=== PATIENT | male | born 1980 | race Caucasian/White ===

== ENCOUNTER 2020-07-22 03:33 | Outpatient (CLI) | payer MEDICAID, SELFPAY ==
--- NOTE | 2020-07-22 08:15 | RT.EKG_ITS ---
APPROVED REPORT Exam: Resting ECG Reason for Exam: High Risk Medications Patient Location: O HR:65 bpm ECG Measurements Heart Rate 65 AXIS NC 159 P 50 QRSd 84 QRS 53 QT 465 T 54 QTc 485 Conclusion Sinus rhythm...normal P axis, V-rate 60- 99
== END 2020-07-22 03:34 | disposition home or self-care (01) ==
LOC: RT 03:34
PROVIDERS: Visit Provider Family Medicine
DX: Z79.899 Other long term (current) drug therapy (principal); Z13.6 Encounter for screening for cardiovascular disorders
CPT/HCPCS: 93005; 93010

== ENCOUNTER 2020-08-05 08:29 | Outpatient (CLI) | payer MEDICAID, SELFPAY ==
--- NOTE | 2020-08-05 08:30 | RT.EKG_ITS ---
APPROVED REPORT Exam: Resting ECG Reason for Exam: high risk med Patient Location: O HR:55 bpm ECG Measurements Heart Rate 55 AXIS [place] 167 P 59 QRSd 84 QRS 45 QT 500 T 53 QTc 479 Conclusion Sinus bradycardia...rate< 60
== END 2020-08-05 08:30 | disposition home or self-care (01) ==
LOC: RT 08:33
PROVIDERS: PCP Family Medicine; Visit Provider Family Medicine
DX: Z79.899 Other long term (current) drug therapy (principal)
CPT/HCPCS: 93005; 93010

== ENCOUNTER 2020-12-13 18:11 | Outpatient (REF) | payer MEDICAID, SELFPAY ==
[2020-12-12 20:47] LABS: HCT 34.9 % (40.0-50.0); HGB 10.4 g/dL (13.5-17.5); MCH 26.4 pg (27.0-33.0); MCHC 29.8 % (32.0-36.0); MCV 88.6 fL (80-95); Platelet Count 379 10^3/uL (130-400); RBC 3.94 10^6/uL (4.36-5.78); RDW 15.7 % (11.8-14.1); WBC 5.56 10^3/uL (4.4-10.8)
== END 2020-12-13 18:12 | disposition home or self-care (01) ==
LOC: NCHCN 18:11
PROVIDERS: PCP Family Medicine; Visit Provider Family Medicine
DX: D64.9 Anemia, unspecified (principal); K65.1 Peritoneal abscess; Z48.02 Encounter for removal of sutures
CPT/HCPCS: 85027

== ENCOUNTER 2022-08-11 12:09 | Emergency (ER) | payer MEDICAID, SELFPAY ==
--- NOTE | 2022-08-11 12:15 | DI.US_ITS ---
Exam(s) US UPPER EXTREMITY VENOUS RT EXAM: US UPPER EXTREMITY VENOUS RT CLINICAL HISTORY: cellulitis, eval for DVT/abscess. TECHNIQUE: Ultrasound examination of the right upper extremity venous system(s) is performed using g rayscale, color-flow, and spectral Doppler analysis. COMPARISON: No exams were available for comparison FINDINGS: The right internal jugular, axillary, subclavian and brachial veins are patent without evidence of th rombosis. The mid and distal cephalic vein is noncompressible for length of 10-12 cm. There is also partial compression of the proximal to mid basilic vein. Several ill-defined fluid collections are seen in the upper extremity. They measure less than 2 cm. There is edema seen in the right upper ex tremity. IMPRESSION: 1. Thrombus seen in the distal cephalic vein for length of 10-12 cm. 2. Nonocclusive thrombus seen in the proximal to mid basilic vein. 3. Findings were discussed with Dr. Zayas at 3:40 p.m. on 08/11/2022. DATA REPOSITORY:
[2022-08-11 12:18] VITALS: BP 118/69; PULSE 109; RESP 18; TEMP 37.4; O2SAT 97
--- NOTE | 2022-08-11 12:31 | W.ED.GENAD ---
Discharge Plan Discharge Details Chief Complaint: Cellulitis Clinical Impression: Cellulitis of arm, right Primary Care Provider: Lissy Allen ED Provider: Ryan Zayas Home Meds and New Rx's Prescriptions: No Action albuterol sulfate 90 mcg/actuation Hfa Aerosol Inhaler 2 inh INHALATION Q4H PRN PRN Medical Decision Making 35-year-old male who is right-hand dominant who is an IV drug user and injects cocaine regularly into his right arm presents today for swelling in his right arm. Patient states that he has been injecting regularly and over the last 1 to 2 days he has noticed significant swelling in the right arm in the right AC region, in the right bicep region, as well as associated pain. He denies fever or chills. He admits notable redness. Pain is made worse with movement of the arm. He did take some ibuprofen but this did not improve his symptoms at all. He denies vomiting or diarrhea. He denies any trauma. He denies any chest pain or shortness of breath. No other complaints at this time. No other modifying factors. The patient's AC region and right bicep and proximal forearm are notably swollen about double the size of his left. Notable tense skin, no fluctuance. Redness and warmth is present, multiple injection sites is present. No clear evidence of focal abscess. No significant axillary swelling. No swelling over the right shoulder. Distal forearm and hand is unremarkable with no significant swelling or edema. Normal movement and strength and capillary refill. Concern for cellulitis clearly, no evidence of necrotizing fasciitis clinically, but this is on the differential. DVT is also certainly of concern. We will get an ultrasound, treat with clindamycin, get blood cultures, monitor closely and reassess. Patient will be signed out to my colleague Dr. Godoy for follow-up on labs and imaging. HPI General Date/Time Provider Initiated Documentation: 08/11/22 12:19. HPI Narrative: 35-year-old male who is right-hand dominant who is an IV drug user and injects cocaine regularly into his right arm presents today for swelling in his right arm. Patient states that he has been injecting regularly and over the last 1 to 2 days he has noticed significant swelling in the right arm in the right AC region, in the right bicep region, as well as associated pain. He denies fever or chills. He admits notable redness. Pain is made worse with movement of the arm. He did take some ibuprofen but this did not improve his symptoms at all. He denies vomiting or diarrhea. He denies any trauma. He denies any chest pain or shortness of breath. No other complaints at this time. No other modifying factors. Related Data Home Medications Medication Instructions Recorded Confirmed albuterol sulfate 90 mcg/actuation 2 inh inhalation Q4H PRN PRN 08/11/22 08/11/22 aerosol inhaler Allergies Allergy/AdvReac Type Severity Reaction Status Date / Time Penicillins Allergy Intermediate Hives Unverified 08/11/22 12:25 General Stated Complaint: Cellulitis JEANNETTE: 3 Review of Systems All systems reviewed & are unremarkable except as noted in HPI and below PFSH All Active Problems (Updated 08/11/22 @ 15:20 by Ryan Zayas DO) Cellulitis of arm, right (Acute) Social History Smoking risk assessment performed?: No Exam Narrative Exam Narrative: 1.Const: Well-nourished, Well-developed, appearing stated age 2.Eyes: PERRL, no conjunctival injection, and symmetrical lids. 3.ENT: Atraumatic external nose and ears. Moist MM. Neck: Symmetric, trachea midline, No thyromegaly. 4.CVS: +S1/S2, No murmurs or gallops. Peripheral pulses 2+ and equal in all extremities. Brisk capillary refill in all extremities. 5.RESP: Unlabored respiratory effort. Clear to auscultation bilaterally. No wheezes rales or rhonchi 6.GI: Soft, Nontender/Nondistended, No hepatosplenomegaly. No guarding or rebound. 7.MSK: Normocephalic/Atraumatic, patient's AC region and right bicep and proximal forearm are notably swollen about double the size of his left. Notable tense skin, no fluctuance. Redness and warmth is present, multiple injection sites is present. No clear evidence of focal abscess. No significant axillary swelling. No swelling over the right shoulder. Distal forearm and hand is unremarkable with no significant swelling or edema. Normal movement and strength and capillary refill. 8.Skin: Warm, Dry. No rashes or lesions. 9.Neuro: retirement village manager II-XII grossly intact. Sensation grossly intact, no focal neurologic deficits. 10.Psych: (AAO) x3. Appropriate mood and affect Course Vital Signs Vital signs: Vital Signs Temperature 37.4 C 08/11/22 12:18 Pulse 109 H 08/11/22 12:18 Respiratory Rate 18 08/11/22 12:18 Blood Pressure 118/69 08/11/22 12:18 Pulse Oximetry 97 08/11/22 12:18 Temperature 37.4 C 08/11/22 12:18 Temperature Source Oral 08/11/22 12:18 Pulse 109 H 08/11/22 12:18 Respiratory Rate 18 08/11/22 12:18 Blood Pressure 118/69 08/11/22 12:18 Blood Pressure Position Sitting 08/11/22 12:18 Pulse Oximetry 97 08/11/22 12:18 Oxygen Delivery Method Room Air 08/11/22 12:18 Oxygen Flow Rate 0 08/11/22 12:18 Pain Level 7 08/11/22 12:18 Lab/Test Results Lab/Test Results: 08/11/22 12:27 Blood Blood Culture - Pending 08/11/22 12:27 Blood Blood Culture - Pending
[2022-08-11 12:52] LABS: Abs Immature Grans 0.05 10^3/uL (0.0-0.06); Absolute Basophil Count 0.02 10^3/uL (0.0-0.2); Absolute Eosinophil Count 0.36 10^3/uL (0.0-0.7); Absolute Lymphocyte Count 0.24 10^3/uL (1.2-3.4); Absolute Monocyte Count 0.42 10^3/uL (0.1-0.8); Basophils % 0.2; Eosinophils % 3.3; HCT 40.2 % (40.0-50.0); HGB 12.5 g/dL (13.5-17.5); Immature Grans % 0.5; Lymphocytes % 2.2; MCH 26.5 pg (27.0-33.0); MCHC 31.1 % (32.0-36.0); MCV 85 fL (80-95); MPV 9.6 fL (8.0-11.0); Monocytes % 3.9; Neutrophils % 89.9; Platelet Count 343 10^3/uL (130-400); RBC 4.71 10^6/uL (4.36-5.78); RDW 12.9 % (11.8-14.1); RDW-SD 40.8 fL; WBC 10.89 10^3/uL (4.4-10.8)
[2022-08-11] MEDS: Ketorolac 15 MG/ML VIAL IVP (12:59)
[2022-08-11] MEDS: CLINDAMYCIN 600 MG/50 ML BAG 100 MG IVPB (12:59)
[2022-08-11] MEDS: Acetaminophen 500 MG TAB 1000 MG PO (12:59)
[2022-08-11 13:00] LABS: Absolute Neutrophil Count 9.79 10^3/uL (1.2-6.7)
[2022-08-11 13:08] LABS: ALT 29 U/L (16-63); AST 18 U/L (15-37); Albumin 3.4 g/dL (3.4-5.0); Alkaline Phosphatase 98 U/L (46-116); Anion Gap 7.8 mmol/L (3-11); BUN 12 mg/dL (7-18); Bilirubin, Total 0.5 mg/dL (0.2-1.0); CO2 27.2 mmol/L (21.0-32.0); CREATININE 0.8 mg/dL (0.70-1.30); Calcium 8.6 mg/dL (8.5-10.1); Chloride 101 mmol/L (98-107); Estimated GFR 118.36 (mL/min/1.73m2); Glucose 115 mg/dL (74-106); Sodium 136 mmol/L (136-145); Total Protein 7.6 g/dL (6.4-8.2)
[2022-08-11 15:57] VITALS: PULSE 80; RESP 16; O2SAT 97
--- NOTE | 2022-08-12 21:39 | W.ED.GENAD ---
Discharge Plan Disposition Patient Disposition: Home Discharge Details Clinical Impression: Cellulitis of arm, right Primary Care Provider: Lissy Allen ED Provider: Ryan Zayas Home Meds and New Rx's Prescriptions: No Action albuterol sulfate 90 mcg/actuation Hfa Aerosol Inhaler 2 inh INHALATION Q4H PRN PRN Discharge Instructions Instructions: Apixaban (By mouth), Cellulitis (ED), Deep Vein Thrombosis (ED) Additional Instructions: At this time you have cellulitis which is an infection in the skin of your arm. There is a very beginnings of small fluid collections, but they are not large enough to drain at this time. Please take the antibiotic clindamycin as directed. It has been sent to your pharmacy on file. Please take a yogurt with live culture or a probiotic to help prevent any diarrhea while on this. Additionally you do have a small clot in your elbow area, but also what appears to be an earlier clot in the deeper vessels. There are risks and benefits to treatment. I have sent a prescription of Xarelto to your pharmacy. It would be our recommendations to take this medication to treat the blood clot. However there are certainly complications if you continue to inject while using this medication. Please follow-up closely in the next 10 days with your primary care provider for reassessment. You will likely need a repeat ultrasound in the next 2 to 3 weeks to reassess the clot. If you notice any worsening of your symptoms, or any new symptoms such as vomiting, diarrhea, fever, chills, shortness of breath, chest pain, numbness, weakness, or fainting , please return immediately to the emergency department for reevaluation. Please follow up with your primary care provider as soon as possible for reassessment and reevaluation. As always, it was a pleasure participating in your medical care today. Referrals: Lissy Allen [Primary Care Provider] - Discharge Data Discharge Date/Time-TO BE ENTERED AT DEPARTURE: 08/11/22 15:58 Medical Decision Making Patient was seen in August. Chart was signed including for HPI, physical exam, and assessment and plan. Unfortunately for some reason these allegedly did not save, and the chart was brought back to my attention as an unsigned chart today October 14, 2022. Although initial documentation was saved as required, the current documentation is now being written out of memory for the event over 2-1/2 months ago. Please see below: Patient presents with complaint of pain and swelling in his right arm. Patient injects in the area regularly, including injecting cocaine. He admits to mild redness and warmth. Mild achiness. He denies fever or chills. No other complaints at this time. He denies numbness tingling or weakness. Exam demonstrates evidence of a superficial clot, cellulitis, small abscess. Recommendations were that the patient be admitted and stay for IV antibiotics blood thinners and formal ultrasonography. Patient refused this. Patient will be started on clindamycin and a blood thinner however patient states that he will likely not be taking a blood thinner. Patient was discharged understanding the risks of his choices, including the worst case scenario which would be or lifelong disability. HPI General Date/Time Provider Initiated Documentation: 08/11/22 12:19. HPI Narrative: Patient presents with complaint of pain and swelling in his right arm. Patient injects in the area regularly, including injecting cocaine. He admits to mild redness and warmth. Mild achiness. He denies fever or chills. No other complaints at this time. He denies numbness tingling or weakness. Related Data Home Medications Medication Instructions Recorded Confirmed albuterol sulfate 90 mcg/actuation 2 inh inhalation Q4H PRN PRN 08/11/22 08/12/22 aerosol inhaler Allergies Allergy/AdvReac Type Severity Reaction Status Date / Time Penicillins Allergy Intermediate Hives Unverified 08/11/22 12:25 General Stated Complaint: Cellulitis JEANNETTE: 3 Review of Systems All systems reviewed & are unremarkable except as noted in HPI and below [facility] Social History Smoking/Tobacco Use Status: Never Smoking risk assessment performed?: Yes Alcohol Intake: never Drug use: Never Substance use type: does not use Do you feel safe at home: Yes Do you feel safe in your relationship?: Yes Exam Narrative Exam Narrative: 1.Const: Well-nourished, Well-developed, appearing stated age 2.Eyes: PERRL, no conjunctival injection, and symmetrical lids. 3.ENT: Atraumatic external nose and ears. Moist MM. Neck: Symmetric, trachea midline, No thyromegaly. 4.CVS: +S1/S2, No murmurs or gallops. Peripheral pulses 2+ and equal in all extremities. Brisk capillary refill in all extremities. 5.RESP: Unlabored respiratory effort. Clear to auscultation bilaterally. No wheezes rales or rhonchi 6.GI: Soft, Nontender/Nondistended, No hepatosplenomegaly. No guarding or rebound. 7.MSK: Right arm demonstrates swelling, evidence of cellulitis, small fluid collection subcutaneously where he has injected. No subcutaneous crepitus. Small clots noted also. No pain out of proportion. No swelling proximal to the elbow. 8.Skin: Please see musculoskeletal 9.Neuro: blow molding machine tender II-XII grossly intact. Sensation grossly intact, no focal neurologic deficits. 10.Psych: (AAO) x3. Appropriate mood and affect Course Vital Signs Vital signs: Vital Signs Temperature 37.4 C 08/11/22 12:18 Pulse 109 H 08/11/22 12:18 Respiratory Rate 18 08/11/22 12:18 Blood Pressure 118/69 08/11/22 12:18 Pulse Oximetry 97 08/11/22 12:18 Temperature 37.4 C 08/11/22 12:18 Temperature Source Oral 08/11/22 12:18 Pulse 80 08/11/22 15:57 Respiratory Rate 16 08/11/22 15:57 Respiratory Effort Normal 08/11/22 13:28 Blood Pressure 118/69 08/11/22 12:18 Blood Pressure Position Sitting 08/11/22 12:18 Pulse Oximetry 97 08/11/22 15:57 Oxygen Delivery Method Room Air 08/11/22 12:18 Oxygen Flow Rate 0 08/11/22 12:18 Pain Level 7 08/11/22 12:18 Lab/Test Results Lab/Test Results: 08/11/22 13:00 Blood Blood Culture - Preliminary NO GROWTH 24 HOURS 08/11/22 13:15 Blood Blood Culture - Preliminary NO GROWTH 24 HOURS Laboratory Tests Range/Units 08/11/22 08/11/22 12:43 12:43 WBC (4.4-10.8) 10^3/uL 10.89 H RBC (4.36-5.78) 10^6/uL 4.71 Hgb (13.5-17.5) g/dL 12.5 L Hct (40.0-50.0) % 40.2 MCV (80-95) fL 85 MCH (27.0-33.0) pg 26.5 L MCHC (32.0-36.0) % 31.1 L RDW (11.8-14.1) % 12.9 Plt Count (130-400) 10^3/uL 343 MPV (8.0-11.0) fL 9.6 Immature Gran % 0.5 Neutrophils % 89.9 Lymphocytes % 2.2 Monocytes % 3.9 Eosinophils % 3.3 Basophils % 0.2 Nucleated RBC % (0.0-0.3) % 0.0 Absolute Neutrophils (1.2-6.7) 10^3/uL 9.79 H Absolute Lymphocytes (1.2-3.4) 10^3/uL 0.24 L Absolute Monocytes (0.1-0.8) 10^3/uL 0.42 Absolute Eosinophils (0.0-0.7) 10^3/uL 0.36 Absolute Basophils (0.0-0.2) 10^3/uL 0.02 Sodium (136-145) mmol/L 136 Potassium (3.5-5.1) mmol/L 4.0 Chloride (98-107) mmol/L 101 Carbon Dioxide (21.0-32.0) mmol/L 27.2 Anion Gap (3-11) mmol/L 7.8 BUN (7-18) mg/dL 12 Creatinine (0.70-1.30) mg/dL 0.8 Est GFR (CKD-EPI 2020) (mL/min/1.73m2) 118.36 Glucose (74-106) mg/dL 115 H Calcium (8.5-10.1) mg/dL 8.6 Total Bilirubin (0.2-1.0) mg/dL 0.5 AST (15-37) U/L 18 ALT (16-63) U/L 29 Alkaline Phosphatase (46-116) U/L 98 Total Protein (6.4-8.2) g/dL 7.6 Albumin (3.4-5.0) g/dL 3.4 Sign Out Sign Out Data: Sign Out Comment: Right arm cellulitis, pending ultrasound for DVT. Recommend clindamycin for home. IV drug using. Last updated by Ryan Zayas DO at 08/11/22 15:21
== END 2022-08-11 15:58 | disposition home or self-care (01) ==
PROVIDERS: Emergency Provider Student in an Organized Health Care Education/Training Program; PCP Family Medicine
DX: L03.113 Cellulitis of right upper limb (principal); I82.611 Acute embolism and thrombosis of superficial veins of right upper extremity
CPT/HCPCS: 80053; 87040; 96365; 96375; 99284; 85025; 93971; J1885

== ENCOUNTER 2022-08-12 00:30 | Emergency (ER) | payer MEDICAID, SELFPAY ==
[2022-08-12] VITALS (42 sets, daily range): BP systolic 97–124; BP diastolic 55–84; PULSE 105–119; RESP 10–19; TEMP 37.2; O2SAT 93–100
--- NOTE | 2022-08-12 00:43 | ED.GENADUL_ITS ---
Discharge Plan Disposition Patient Disposition: Against Medical Advice Discharge Details Clinical Impression: Cellulitis of arm, right, Leukocytosis, Normocytic anemia, Thrombocytosis, Hyperbilirubinemia, Elevated C-reactive protein (CRP), Hypoalbuminemia, Acute lactic acidosis, Acute thrombosis of right upper extremity Primary Care Provider: Lissy Allen ED Provider: Eber Stanley Home Meds and New Rx's Prescriptions: Continued albuterol sulfate 90 mcg/actuation Hfa Aerosol Inhaler 2 inh INHALATION Q4H PRN PRN Xarelto 15 mg tablet 15 mg PO BID 21 Days Qty: 42 0RF Rx Instructions: must administer with evening meal clindamycin HCl 150 mg capsule 450 mg PO TID 10 Days Qty: 90 0RF Discharge Instructions Additional Instructions: Please read all of the information that accompanies these instructions. You were seen in the emergency department for your arm pain. You are diagnosed with blood clots in your arms. It was recommended that you spend the night in the hospital. You left AGAINST MEDICAL ADVICE. Please schedule an appointment with your primary care provider later this week. Please return to the emergency department if develop worsening pain or any shortness of breath or chest pain. Please take the antibiotics and blood thinner that you have previously been prescribed. Medical Decision Making =This is a tachycardic but normotensive and normothermic [id number] 35-year-old IV drug user with recent extensive right upper extremity DVT complicated by cellulitis and local swelling concerning for the possibility of developing compartment syndrome. Given his worsening swelling will obtain CT of his upper extremity and will add on a CTA to assess for PE. His presentation is certainly concerning for sepsis so we will add lactate blood cultures and treat empirically with ceftriaxone and vancomycin. He does have a remote history of endocarditis so we will initiate therapy with 500 cc of crystalloid. His hand is warm and well perfused at the moment with intact sensation and motor function. Will assess electrolytes and anticipate patient will benefit from transfer as given the extent of his thrombus he might be a candidate for catheter directed thrombolysis or thrombectomy. We will initiate heparin drip. No signs of phlegmasia at this point. His upper extremity DVT seems secondary rather than primary as result of his IV drug use. 1:30 AM Using real-time ultrasound guidance I inserted 2, 20-gauge IVs in the patient's left upper extremity. The more distal IV was not able to be fully advanced. The more proximal IV advanced fully. These IVs were confirmed with bubble studies. 2:15 AM Comprehensive metabolic panel with no JOSE but mild new hyperbilirubinemia. Elevated CRP greater than 25 mg/dL. Lactate mildly elevated at 1.7 mmol/L. I spoke with the transfer center at [facility] to touch base with vascular. I completed a limited bedside echocardiogram to assess the patient's ejection fraction which appeared normal. He had a hyperdynamic squeeze. 3 AM CBC with significant leukocytosis and thrombocytosis. Mild normocytic anemia. Reassuring normal CK 3:40 AM I spoke with Dr. Rosa Howard from vascular at [facility] who felt that patient's thrombi were superficial. She did advise however heparin drip and warm compression with elevation given the patient's significant symptoms with his thrombi. She reported that he was not at risk for progressing to PE. She also advised hospitalization for IV antibiotics given the superimposed cellulitis. Unfortunately we are at capacity have asked the transfer center at [facility] to determine if they have capacity to accept this patient. 4 AM CTA of the patient's chest was read as showing few scattered groundglass opacities and nodular foci within the upper lobes bilaterally largest in the left upper lobe with findings most compatible for multifocal pneumonia. Given prior history of acute septic PEs I am concerned for recurrent septic emboli. CT scan of the patient's right upper extremity showed inflammation of anterior medial aspects of the right upper arm but no gas nor soft tissue infection. Patient has a normal proximal right upper extremity arterial system. 4:51 AM [facility] unfortunately declined. 5:15 AM I was planning on hospitalizing the patient locally. He reported feeling improved and wanting to be discharged. I explained that there was a risk to develop worsening arm swelling and lose his right upper extremity that he could progress to develop a blood clot in his lungs. I advised hospitalization. Patient was adamant about wanting to go home. I advised adherence with previously prescribed rivaroxaban and clindamycin. Health rn unit manager Damaris will have patient seen within the week by primary care. He will likely benefit from repeat right upper extremity ultrasound to ensure that his thrombus is resolving as he is high risk for long-term anticoagulation given his IV drug use. 1. I explained the current situation and condition to the patient. 2. I explained the recommended treatment for this condition -heparin drip and IV antibiotics 3. I explained the risk of not having the recommended treatment -worsening arm swelling possible ischemia and compartment syndrome and PE 4. The patient understands this information has no questions, and repeated back this information. 5. The patient states that they need to leave and will return if his pain worsens 6. Mental status is lucid and the patient has decision-making capacity. 7. Patient is withdrawing consent for care Patient was mildly tachycardic when he left the ED. Chronic conditions affecting the care of the patient: Endocarditis and IV drug use History obtained from an outside historian: Patient's female friend in the room External record review: [facility] E[place] Diagnostic interpretations performed by me: [Per my independent interpretation chest x-ray shows:] No acute cardiopulmonary process on single view chest x-ray Per my independent interpretation EKG shows: Narrow complex sinus tachycardia at a rate of 110. Normal axis. Intervals within normal limits. No acute injury pattern. Compared to prior dated 2 years ago sinus tachycardia has replaced sinus bradycardia. Medications: Ceftriaxone vancomycin and IV fluids Social determinants of health affecting disposition: IV drug use. Management discussed with: Vascular at [facility] Treatment/interventions considered: Hospitalization but patient left AGAINST MEDICAL ADVICE Response to therapies provided: Hammond mildly improved following IV fluids HPI General Date/Time Provider Initiated Documentation: 08/12/22 00:38 . HPI Narrative: This is a 35-year-old [id number] IV drug user who routinely injects cocaine into his right arm now with worsening arm pain swelling. He was seen in the ED earlier this evening and diagnosed with a DVT for which he was started on clindamycin and rivaroxaban. He has been unable to take his medications as the pharmacy was closed. He had worsening pain and swelling. Chart review indicates that the patient has a thrombus in the distal cephalic vein that is 10 to 12 cm in length and a nonocclusive thrombus in the proximal to mid basilic vein. He vomited 3 times and reported a fever. He denies any specific trauma. His fever was 102 ?F as taken orally prior to arrival. He denies chest pain abdominal pain and shortness of breath. He denies routine tobacco alcohol. Related Data Home Medications Medication Instructions Recorded Confirmed albuterol sulfate 90 mcg/actuation 2 inh inhalation Q4H PRN PRN 08/11/22 08/12/22 aerosol inhaler clindamycin HCl 150 mg capsule 450 mg PO TID 10 days #90 caps 08/11/22 08/12/22 rivaroxaban 15 mg tablet (Xarelto) 15 mg PO BID 3 weeks #42 tabs 08/11/22 08/12/22 Previous Rx's Medication Instructions Recorded clindamycin HCl 150 mg capsule 450 mg PO TID 10 days #90 caps 08/11/22 rivaroxaban 15 mg tablet (Xarelto) 15 mg PO BID 3 weeks #42 tabs 08/11/22 Allergies Allergy/AdvReac Type Severity Reaction Status Date / Time Penicillins Allergy Intermediate Hives Unverified 08/11/22 12:25 General Stated Complaint: Cellulitis JEANNETTE: 3 PFSH All Active Problems (Updated 08/12/22 @ 04:03 by Eber Stanley MD) Cellulitis of arm, right (Acute) Leukocytosis (Acute) Normocytic anemia (Acute) Thrombocytosis (Acute) Hyperbilirubinemia (Acute) Elevated C-reactive protein (CRP) (Acute) Hypoalbuminemia (Acute) Acute lactic acidosis (Acute) Acute thrombosis of right upper extremity (Acute) Social History Smoking/Tobacco Use Status: Never Smoking risk assessment performed?: Yes Alcohol Intake: never Drug use: Never Substance use type: does not use Do you feel safe at home: Yes Do you feel safe in your relationship?: Yes Exam Narrative Exam Narrative: General: Uncomfortable-appearing in no acute distress speaking in complete sentences. Head: Normocephalic, atraumatic. Eye: Extraocular eye movements intact. No conjunctival injection. No scleral icterus. Ear, nose, mouth, throat: Grossly normal inspection. Normal voice, handling secretions normally. Neck: Trachea midline. Cardiovascular: Well-perfused distal extremities. Rapid regular rate. No murmurs. Respiratory: Nonlabored respiration. Clear lungs soft nontender abdomen. Gastrointestinal: Nondistended abdomen. Musculoskeletal: Marked swelling of ulnar aspect of the right upper extremity from just distal to the axilla down through the elbow and into the forearm. Patient has limited ability to flex at the elbow as he can only flex his elbow approximately 90 degrees. He has intact sensation and motor function in the right hand across the radial, median, and ulnar nerve distributions. 2+ right radial pulse. Cap refill less than 2 seconds in the right fingertips. Patient does have enlarged tender right axillary lymph nodes. No obvious lacerations nor ulcers to right upper extremity. Skin: Normal for age and race, grossly normal temperature and turgor. No acute rash. Neurologic: Alert and appropriate, no apparent acute deficits. Psychiatric: Mood and manner are appropriate. Grooming and personal hygiene are appropriate. Course Vital Signs Vital signs: Vital Signs Temperature 37.2 C 08/12/22 00:40 Pulse 119 H 08/12/22 00:40 Respiratory Rate 18 08/12/22 00:40 Blood Pressure 105/78 08/12/22 00:40 Pulse Oximetry 97 08/12/22 00:40 Temperature 37.2 C 08/12/22 00:40 Temperature Source Temporal Artery Scan 08/12/22 00:40 Pulse 119 H 08/12/22 00:40 Respiratory Rate 18 08/12/22 00:40 Blood Pressure 105/78 08/12/22 00:40 Blood Pressure Position Sitting 08/12/22 00:40 Pulse Oximetry 97 08/12/22 00:40 Oxygen Delivery Method Room Air 08/12/22 00:40 Oxygen Flow Rate 0 08/12/22 00:40 Pain Level 10 08/12/22 00:40
--- NOTE | 2022-08-12 00:45 | DI.RAD_ITS ---
Exam(s) XR CHEST 1V IN DI DEPT EXAM: XR CHEST 1V IN DI DEPT CLINICAL HISTORY: Sepsis TECHNIQUE: 2D digital imaging was performed of the chest. One image was obtained. An AP view was ob tained. COMPARISON: CT CT CHEST PE CTA from 08/12/2022 FINDINGS: MEDIASTINUM: Normal. HEART: Normal. PULMONARY VASCULATURE: Normal. LUNGS: No focal consolidating infiltrates. The nodular focus in the left upper lobe is seen. This w as present on the CT scan of the chest performed earlier in the day. Calcifications are again seen i n the right mid lung. PLEURAL SPACE: No pleural effusion or pneumothorax. BONE:Within normal limits for the patient's age. OTHER FINDINGS:Normal. IMPRESSION: 1. No acute pulmonary findings. 2. 9 mm left upper lobe pulmonary nodule. Follow-up recommendation is included on the CT scan of the chest from the same day. Please refer to that report for complete details. DATA REPOSITORY: RADIATION DOSE DELIVERED:
--- NOTE | 2022-08-12 00:45 | DI.CT_ITS ---
Exam(s) CT CHEST PE CTA EXAM: CT CHEST PE CTA CLINICAL HISTORY: Upper extremity DVT. TECHNIQUE: Imaging Protocol: Axial CT angiography was performed with multi-slice acquisition and mu lti-planar and/or 3D reconstructions. CONTRAST MATERIAL: Intravenous: Omnipaque 350 contrast volume:100 mL COMPARISON: CT CT UPPER EXTREMITY RT CTA from 08/12/2022 FINDINGS: The examination is limited due to patient motion artifact. Tracheobronchial tree: Patent where visualized. Pulmonary parenchyma: There is a 8 mm nodule in the left upper lobe. There is a 9 mm nodule in the r ight upper lobe. There is another 5 mm nodule seen in the right upper lobe. No architectural distor tion. Parenchymal calcifications are seen in the right upper lobe. Pulmonary Arteries: No evidence of filling defect to suggest pulmonary emboli. Mediastinum and [place]: No dominant adenopathy or fluid collection. The esophagus is unremarkable. Visualized thyroid gland: Unremarkable. Pleura: No effusion or pneumothorax. Heart: The heart is not dilated. No coronary artery calcifications are seen. No pericardial effusion. Aorta: Thoracic aorta non-dilated. No evidence of dissection. Upper abdomen: Unremarkable. Soft tissues: Mildly enlarged lymph nodes are seen in the right axilla. The largest measures 2.1 x 1 .5 cm. Bones: Within normal limits for the patient's age.There is an L2 old compression fracture deformity. The proximal aspect of an intramedullary nba pedicle screws are seen in the upper lumbar spine. The re is an old deformity of the sternum. IMPRESSION: 1. No evidence of pulmonary embolism, thoracic aortic dissection or aneurysm. 2. Pulmonary nodules. Differential considerations include an infectious etiology, pneumonia or metast atic disease. The largest measures 9 mm[address] Follow-up CT scan in 3 to 6 months is recommended, followed by optional 2nd CT scan in 18-24 months dependent on the risk level. (Kathrin et al, 2017). Unexpected findings RADIATION DOSE DELIVERED: 422.14 mGy.cm Total DLP DATA REPOSITORY: All CT scans at this facility are submitted to the National Radiology Data Registry (NRDR) Dose Index Registry (DIR) with the [employer] ([employer]). RADIATION OPTIMIZATION: All CT scans at this facility use at least one of these dose optimization te chniques: automated exposure control; mA and/or kV adjustment per patient size (includes targeted exa ms where dose is matched to clinical indication); or iterative reconstruction.
--- NOTE | 2022-08-12 00:45 | DI.CT_ITS ---
Exam(s) CT UPPER EXTREMITY RT CTA EXAM: CT UPPER EXTREMITY RT CTA CLINICAL HISTORY: Right upper extremity DVT and arm swelling TECHNIQUE: Imaging Protocol: Axial computed tomography images with coronal and sagittal reformatted images were created and reviewed. CONTRAST MATERIAL: Intravenous: Omnipaque 350 Contrast volume:100 COMPARISON: CT CT CHEST PE CTA from 08/12/2022 FINDINGS: Bones: The osseous structures and articular surfaces are intact. There is no evidence of fracture or dislocation. The glenohumeral joint is well maintained as is the acromioclavicular joint. No suspic ious lytic or sclerotic lesions are seen. The visualized elbow joint is unremarkable. Vasculature: The visualized right subclavian artery, axillary artery and brachial arteries are unrema rkable. No evidence of occlusion or significant stenosis. The radial and ulnar arteries were not im aged on this examination. Soft Tissues: There are enlarged lymph nodes seen in the right axilla. The largest measures 1.5 x 2 .1 cm. The muscles are grossly unremarkable. There is edema seen in the soft tissues particularly i n the medial aspect of the upper extremity. IMPRESSION: 1. Normal visualized proximal right upper extremity arteries. No evidence of occlusion or significan t stenosis. 2. Edema seen in the soft tissues of the upper extremity particularly medially which may represent ed fang or cellulitis. No gas or focal fluid collection to suggest an abscess is seen. 3. Mildly enlarged right axillary lymph nodes which may be reactive. RADIATION DOSE DELIVERED: Total DLP DATA REPOSITORY: All CT scans at this facility are submitted to the National Radiology Data Registry (NRDR) Dose Index Registry (DIR) with the [employer] ([employer]). RADIATION OPTIMIZATION: All CT scans at this facility use at least one of these dose optimization te chniques: automated exposure control; mA and/or kV adjustment per patient size (includes targeted exa ms where dose is matched to clinical indication); or iterative reconstruction.
--- NOTE | 2022-08-12 00:45 | RT.EKG_ITS ---
APPROVED REPORT Exam: Resting ECG Reason for Exam: Tachycardia Patient Location: E HR:110 bpm ECG Measurements Heart Rate 110 AXIS [place] 147 P 72 QRSd 77 QRS 58 QT 310 T 64 QTc 420 Conclusion Sinus tachycardia...rate> 99 Narrow complex sinus tachycardia at a rate of 110. Normal axis. Intervals within normal limits. No acute injury pattern. Compared to prior dated 2 years ago sinus tachycardia has replaced sinus narda ycardia.
[2022-08-12 01:28] LABS: Abs Immature Grans 0.13 10^3/uL (0.0-0.06); Basophils % 0.2; Eosinophils % 0.4; HCT 41.4 % (40.0-50.0); HGB 13.2 g/dL (13.5-17.5); Immature Grans % 0.6; Lactate 1.7 mmol/L (0.6-1.4); Lymphocytes % 0.8; MCH 27.2 pg (27.0-33.0); MCHC 31.9 % (32.0-36.0); MCV 85 fL (80-95); MPV 9.9 fL (8.0-11.0); Monocytes % 2.1; Neutrophils % 95.9; Platelet Count 422 10^3/uL (130-400); RBC 4.86 10^6/uL (4.36-5.78); RDW 13.1 % (11.8-14.1); WBC 20.75 10^3/uL (4.4-10.8)
[2022-08-12 01:37] LABS: Absolute Basophil Count 0.04 10^3/uL (0.0-0.2); Absolute Eosinophil Count 0.08 10^3/uL (0.0-0.7); Absolute Lymphocyte Count 0.17 10^3/uL (1.2-3.4); Absolute Monocyte Count 0.44 10^3/uL (0.1-0.8)
[2022-08-12 01:48] LABS: INR 1.2 (0.9-1.1); Prothrombin Time 12.4 sec (9.3-11.0)
[2022-08-12 01:50] LABS: ALT 41 U/L (16-63); AST 22 U/L (15-37); Albumin 3.2 g/dL (3.4-5.0); Alkaline Phosphatase 161 U/L (46-116); Anion Gap 9.4 mmol/L (3-11); BUN 13 mg/dL (7-18); Bilirubin, Total 1.8 mg/dL (0.2-1.0); CO2 25.6 mmol/L (21.0-32.0); Calcium 8.8 mg/dL (8.5-10.1); Chloride 98 mmol/L (98-107); Estimated GFR 100.66 (mL/min/1.73m2); Glucose 126 mg/dL (74-106); Potassium 3.8 mmol/L (3.5-5.1); Sodium 133 mmol/L (136-145); Total Protein 7.8 g/dL (6.4-8.2)
[2022-08-12] MEDS: cefTRIAXone 2 GM/50 ML BAG IVPB (01:53)
[2022-08-12] MEDS: Heparin in 0.45% NaCl 25,000 UNIT/250 ML BAG 11 UNIT IV (01:54)
[2022-08-12 01:55] LABS: Creatine Kinase 46 U/L (39-308)
[2022-08-12] MEDS: Omnipaque 350 MG/ML 100 ML BTL IJ (01:55)
[2022-08-12] MEDS: Normal Saline 500 ML IV (01:55)
[2022-08-12] MEDS: Normal Saline - Diluent 50 ML VIAL IJ (01:55)
[2022-08-12 01:58] LABS: C-Reactive Protein > 25.00 mg/dL (0.0-0.3)
[2022-08-12] MEDS: Normal Saline 1,000 ML 1000 ML IV (03:05)
--- NOTE | 2022-08-12 03:52 | DI.VRAD_ITS ---
PROCEDURE INFORMATION: Exam: XR Chest Exam date and time: 08/12/2022 1:49 AM Age: 35 years old Clinical indication: Other: Sepsis TECHNIQUE: Imaging protocol: Radiologic exam of the chest. Views: 1 view. COMPARISON: CT CHEST PE CTA 08/12/2022 1:42 AM FINDINGS: Lungs: 9 mm nodular focus within the left upper lobe. Several calcified granulomas within the right midlung zone. Pleural spaces: Unremarkable. No pleural effusion. No pneumothorax. Heart/Mediastinum: Normal. Bones/joints: No acute abnormality. IMPRESSION: 9 mm nodular focus within the left upper lobe, likely infectious/inflammatory. Recommend further evaluation/follow-up. Dictated and Authenticated by: Holger Connors MD. Ordering:ARNULFO Velázquez MD
--- NOTE | 2022-08-12 03:59 | DI.VRAD_ITS ---
PROCEDURE INFORMATION: Exam: CTA Chest With Contrast Exam date and time: 08/12/2022 1:42 AM Age: 35 years old Clinical indication: Other: Right upper extremity dvt and arm swelling; Patient HX: Upper extremity dvt dx ultrasound today TECHNIQUE: Imaging protocol: Computed tomographic angiography of the chest with contrast. Exam focused on the arteries. 3D rendering (Not supervised by radiologist): MIP and/or 3D reconstructed images were created by the technologist. Radiation optimization: All CT scans at this facility use at least one of these dose optimization techniques: automated exposure control; mA and/or kV adjustment per patient size (includes targeted exams where dose is matched to clinical indication); or iterative reconstruction. Contrast material: OMNI 350; Contrast volume: 100 ml; Contrast route: INTRAVENOUS (IV); COMPARISON: US UPPER EXTREMITY VENOUS RT 08/11/2022 2:39 PM FINDINGS: Pulmonary arteries: No acute pulmonary emboli. Aorta: Unremarkable. No aortic aneurysm. No aortic dissection. Lungs: Calcified granulomas within the right upper lobe periphery. Few scattered ground-glass opacities and nodular foci within the upper lobes bilaterally, the largest in the left upper lobe measuring approximately 9 mm in diameter (series 11, image 214). Pleural spaces: Unremarkable. No pneumothorax. No pleural effusion. Heart: Unremarkable. No cardiomegaly. No pericardial effusion. Lymph nodes: Unremarkable. No enlarged lymph nodes. Bones/joints: Unremarkable. No acute fracture. Soft tissues: Unremarkable. IMPRESSION: 1. No acute pulmonary emboli. 2. Few scattered ground-glass opacities and nodular foci within the upper lobes bilaterally, the largest in the left upper lobe measuring approximately 9 mm in diameter (series 11, image 214). Findings most compatible with multifocal pneumonia. Recommend follow-up. Dictated and Authenticated by: Holger Connors MD. Ordering:ARNULFO Velázquez MD
--- NOTE | 2022-08-12 04:03 | DI.VRAD_ITS ---
PROCEDURE INFORMATION: Exam: CTA Right Upper Extremity With Contrast Exam date and time: 08/12/2022 1:42 AM Age: 35 years old Clinical indication: Swelling; Arm, upper; Right; Patient HX: Upper extremity dvt dx ultrasound today; Additional info: Right upper extremity dvt and arm swelling TECHNIQUE: Imaging protocol: Computed tomographic angiography of the right upper extremity with contrast, including non-contrast images if performed. 3D rendering (Not supervised by radiologist): MIP and/or 3D reconstructed images were created by the technologist. Radiation optimization: All CT scans at this facility use at least one of these dose optimization techniques: automated exposure control; mA and/or kV adjustment per patient size (includes targeted exams where dose is matched to clinical indication); or iterative reconstruction. Contrast material: OMNI 350; Contrast volume: 100 ml; Contrast route: INTRAVENOUS (IV); COMPARISON: US UPPER EXTREMITY VENOUS RT 08/11/2022 2:39 PM FINDINGS: Right subclavian artery: No acute findings. No occlusion or significant stenosis. Axillary artery: No acute findings. No occlusion or significant stenosis. Brachial artery: No acute findings. No occlusion or significant stenosis. Radial artery: Not imaged. Ulnar artery: Not imaged. Soft tissues: Mildly enlarged lymph nodes within the right axillary region, largest measuring approximately 13 mm in short axis diameter, likely reactive. Increased attenuation of the subcutaneous tissues of the anterior and medial aspects of the upper arm, likely edema or cellulitis. No soft tissue gas or focal abscess. IMPRESSION: 1. Normal proximal right upper extremity arteries. 2. Mildly enlarged lymph nodes within the right axillary region, largest measuring approximately 13 mm in short axis diameter, likely reactive. 3. Increased attenuation of the subcutaneous tissues of the anterior and medial aspects of the upper arm, likely edema or cellulitis. No soft tissue gas or focal abscess. Dictated and Authenticated by: Holger Connors MD. Ordering:ARNULFO Velázquez MD
[2022-08-12] MEDS: fentaNYL 100 MCG/2 ML VIAL 50 MCG IVP (04:09)
[2022-08-12] MEDS: ACETAMINOPHEN 1,000 MG/100 ML BTL 400 MG IVPB (04:10)
[2022-08-12 04:31] LABS: Bilirubin Small (Negative); Blood Negative (Negative); Clarity Clear (Clear); Glucose Negative (Negative); Ketones 40 mg/dL (Negative); Leukocyte Esterase Negative (Negative); Nitrite Negative (Negative); pH 5.5 (5-8)
[2022-08-12 05:09] LABS: Bacteria Rare HPF (Negative); C & S Indicated? No; Crystals Negative HPF (Negative); Epithelial Cells Rare HPF (Negative); Mucus Trace (Negative); RBC 0-2 HPF (0-2); WBC 0-2 HPF (0-5)
[2022-08-12 05:43] LABS: *AMPHETAMINES SCREEN URINE Negative (Negative); *BARBITURATES SCREEN URINE Negative (Negative); *BENZODIAZEPINES SCREEN URINE Negative (Negative); Cannabinoids THC Negative (Negative); Cocaine Screen,Urine Positive (Negative); METHADONE URINE SCREEN Positive (Negative); OPIATES URINE SCREEN Negative (Negative)
[2022-08-12 05:47] LABS: Tricyclic Antidepressants Negative (Negative)
--- NOTE | 2022-08-14 15:48 | W.EDPROG ---
Date of service: 08/14/22 Time of Service: 15:51 Medical Decision Making I received a message from radiology concerning pulmonary nodules that were seen in this patient on final read of his CT scan. I tried calling the patient at his cell phone number. I spoke with his female friend Griselda who reported that he was at [facility]. I requested that the patient call me back tomorrow. I will ask health ammunition and explosives handler Marilynn to have the patient seen in follow-up by primary care provider. I advised that he will need a repeat CT scan of his chest in 3 months. I also asked health ammunition and explosives handler Marilynn to call [facility]. Patient was not reportedly in the ED at [facility] nor [facility]. Discharge Plan Disposition Patient Disposition: Against Medical Advice Discharge Details Clinical Impression: Cellulitis of arm, right, Leukocytosis, Normocytic anemia, Thrombocytosis, Hyperbilirubinemia, Elevated C-reactive protein (CRP), Hypoalbuminemia, Acute lactic acidosis, Acute thrombosis of right upper extremity Primary Care Provider: Lissy Allen ED Provider: Eber Stanley Home Meds and New Rx's Prescriptions: Continued albuterol sulfate 90 mcg/actuation Hfa Aerosol Inhaler 2 inh INHALATION Q4H PRN PRN Xarelto 15 mg tablet 15 mg PO BID 21 Days Qty: 42 0RF Rx Instructions: must administer with evening meal clindamycin HCl 150 mg capsule 450 mg PO TID 10 Days Qty: 90 0RF Discharge Instructions Additional Instructions: Please read all of the information that accompanies these instructions. You were seen in the emergency department for your arm pain. You are diagnosed with blood clots in your arms. It was recommended that you spend the night in the hospital. You left AGAINST MEDICAL ADVICE. Please schedule an appointment with your primary care provider later this week. Please return to the emergency department if develop worsening pain or any shortness of breath or chest pain. Please take the antibiotics and blood thinner that you have previously been prescribed. Discharge Data Discharge Date/Time-TO BE ENTERED AT DEPARTURE: 08/12/22 05:22
--- NOTE | 2022-08-14 16:00 | NUR.NOTE ---
Nursing Note: Referral faxed to PCP [facility] for lung nodules, needs CT within 3 months. To be follow up withn 2 weeks.
--- NOTE | 2022-08-15 10:43 | W.EDPROG ---
Date of service: 08/15/22 Time of Service: 10:43 Medical Decision Making I attempted to call this patient again at his home number. There was unfortunately no voicemail so was not able to leave a message. Discharge Plan Disposition Patient Disposition: Against Medical Advice Discharge Details Clinical Impression: Cellulitis of arm, right, Leukocytosis, Normocytic anemia, Thrombocytosis, Hyperbilirubinemia, Elevated C-reactive protein (CRP), Hypoalbuminemia, Acute lactic acidosis, Acute thrombosis of right upper extremity Primary Care Provider: Lissy Allen ED Provider: Eber Stanley Home Meds and New Rx's Prescriptions: Continued albuterol sulfate 90 mcg/actuation Hfa Aerosol Inhaler 2 inh INHALATION Q4H PRN PRN Xarelto 15 mg tablet 15 mg PO BID 21 Days Qty: 42 0RF Rx Instructions: must administer with evening meal clindamycin HCl 150 mg capsule 450 mg PO TID 10 Days Qty: 90 0RF Discharge Instructions Additional Instructions: Please read all of the information that accompanies these instructions. You were seen in the emergency department for your arm pain. You are diagnosed with blood clots in your arms. It was recommended that you spend the night in the hospital. You left AGAINST MEDICAL ADVICE. Please schedule an appointment with your primary care provider later this week. Please return to the emergency department if develop worsening pain or any shortness of breath or chest pain. Please take the antibiotics and blood thinner that you have previously been prescribed. Discharge Data Discharge Date/Time-TO BE ENTERED AT DEPARTURE: 08/12/22 05:22
== END 2022-08-12 05:22 | disposition left against medical advice (07) ==
PROVIDERS: Emergency Provider Emergency Medicine; PCP Family Medicine
DX: I82.621 Acute embolism and thrombosis of deep veins of right upper extremity (principal); L03.113 Cellulitis of right upper limb; E87.21 Acute metabolic acidosis; E88.09 Other disorders of plasma-protein metabolism, not elsewhere classified; D72.829 Elevated white blood cell count, unspecified; D64.9 Anemia, unspecified; R79.82 Elevated C-reactive protein (CRP); Z53.29 Procedure and treatment not carried out because of patient's decision for other reasons; R91.8 Other nonspecific abnormal finding of lung field; R00.0 Tachycardia, unspecified; Z86.79 Personal history of other diseases of the circulatory system; E80.6 Other disorders of bilirubin metabolism
CPT/HCPCS: 71275; 73206; 80053; 80307; 82550; 87040; 93005; 96361; 96365; 96366; 96367; 96374; 96375; 99285; 71045; 81003; 81015; 83605; 85025; 85610; 85730; 86140; 93010; J0131; J3010; J3490

== ENCOUNTER 2023-02-27 10:11 | Emergency (ER) | payer MEDICAID, SELFPAY ==
[2023-02-27 10:20] VITALS: BP 123/72; PULSE 100; RESP 20; TEMP 38; O2SAT 99
--- NOTE | 2023-02-27 10:57 | W.ED.GENAD ---
Discharge Plan Disposition Patient Disposition: Home Condition: Improving Discharge Details Clinical Impression: Abscess, dental Primary Care Provider: Lissy Allen ED Provider: Mylene Arias Home Meds and New Rx's Prescriptions: New clindamycin HCl 300 mg capsule 300 mg PO Q6H Qty: 40 0RF Rx Instructions: Take with a probiotic ibuprofen [Ibuprofen IB] 200 mg tablet 600 mg PO Q6H PRN (Reason: pain) Qty: 60 0RF Rx Instructions: Take 2-3 tabs every 6 hours as needed for pain No Action albuterol sulfate 90 mcg/actuation Hfa Aerosol Inhaler 2 inh INHALATION Q4H PRN PRN Discharge Instructions Instructions: Dental Abscess (ED) Additional Instructions: 1. Start clindamycin 300 mg every 6 hours for 10 days. We recommend that you take a probiotic while on clindamycin. 2. Alternate 1000 mg acetaminophen with 3 hours with 400 to 600 mg of ibuprofen as needed for pain. 3. Rinse with dilute hydrogen peroxide and tap water 2-3 times a day. Return to the emergency department for any new or worsening symptoms such as difficulty breathing talking or swallowing. 4. Call your dentist on March 01 for follow-up appointment and recheck. Discharge Data Discharge Date/Time-TO BE ENTERED AT DEPARTURE: 02/27/23 11:07 Discharge Physician: Mylene Arias Medical Decision Making This is a 35-year-old male who presents with 3 days of right upper dental pain and swelling of the right face. There is no palpable abscess or fluctuance on exam. His airway is patent. He is handling secretions. There is no evidence of Roberto's angina or buccal cellulitis. He does have diffuse dental disease and has not seen a dentist in 2 years. He tells me he has an allergy to penicillin so I will prescribe clindamycin. He has asked me to call in a prescription for ibuprofen and I will do that as well. I have advised him to follow-up with his dentist, to take clindamycin as directed, to buy a probiotic and take while on clindamycin. I have advised him to return if he has difficulty breathing talking or swallowing or for any new or worrisome symptoms. He voiced understanding agreement with the discharge plan. All his questions and concerns were addressed prior to discharge Differential Diagnosis Differential Diagnosis: Dental abscess. Multiple dental caries. Fever HPI General Date/Time Provider Initiated Documentation: 02/27/23 10:55. Limitations to Documentation: no limitations. Information obtained by: patient. HPI Narrative: Time seen was 10:30 AM in room 11. The patient is a 35-year-old male who has not seen a dentist in 2 years. The last dentist he saw told him he needed further dental work done but he was not followed up. He presents today with 3 days of right facial swelling and pain in the right upper jaw. He denies any drainage. He is complaining of pain which is 8 out of 10 in severity. He has not taken any medications for the pain. The swelling is associated with nasal congestion. He says it is difficult to breathe out of his nose. He denies any change in voice or swelling of the throat. The patient states the pain is aggravated by eating and extremes in temperature. He does have an allergy to penicillin. The pain does not radiate and is constant and sharp. He denies any fevers or chills. Related Data Home Medications Medication Instructions Recorded Confirmed albuterol sulfate 90 mcg/actuation 2 inh inhalation Q4H PRN PRN 08/11/22 02/27/23 aerosol inhaler clindamycin HCl 300 mg capsule 300 mg PO Q6H #40 caps 02/27/23 ibuprofen 200 mg tablet (Ibuprofen 600 mg (3 x 200 mg) PO Q6H PRN 02/27/23 IB) pain #60 tabs Previous Rx's Medication Instructions Recorded clindamycin HCl 300 mg capsule 300 mg PO Q6H #40 caps 02/27/23 ibuprofen 200 mg tablet (Ibuprofen 600 mg (3 x 200 mg) PO Q6H PRN 02/27/23 IB) pain #60 tabs Allergies Allergy/AdvReac Type Severity Reaction Status Date / Time Penicillins Allergy Intermediate Hives Unverified 02/27/23 10:25 General Stated Complaint: DentalOral JEANNETTE: 3 Review of Systems Narrative: see hpi PFSH All Active Problems Abscess, dental (Acute) Social History Smoking/Tobacco Use Status: Never Smoking risk assessment performed?: Yes Alcohol Intake: never Drug use: Never Substance use type: does not use Do you feel safe at home: Yes Do you feel safe in your relationship?: Yes Exam Narrative Exam Narrative: Note patient is a well-developed well-nourished male who is normotensive. He is borderline tachycardic with a heart rate of 100. His temperature is 38.0 his room air O2 sat is 99%. He is not tachypneic. He has normal phonation. Const General: cooperative, no acute distress and well developed [facility] General nose exam: external nose normal Face and sinus: other (Swelling of his left cheek) Teeth and gingiva: caries, poor dentition and other (Patient has diffuse dental disease. ) Throat: posterior oropharynx normal and uvula midline Other: There is no palpable fluctuance or gross abscess noted in the right upper jaw. There is no buccal cellulitis. There is no evidence of Roberto's angina. There is no swelling of the posterior pharynx. He is handling secretions. Eyes General: appearance normal, both eyes and all related structures Sclera: sclerae normal Cornea: corneas normal Pupils: PERRL EOM: EOM intact bilaterally Neck Other: No meningeal signs. No significant swelling or submandibular or anterior cervical adenopathy. Chest Other: Nontender Resp Effort & Inspection: normal respiratory effort and able to speak in complete sentences Auscultation: clear to auscultation bilaterally Cardio Jugular venous pressure: no JVD Rhythm: regular rhythm Heart Sounds: S1 normal and S2 normal GI Inspection: normal to inspection Palpation: soft, no hepatosplenomegaly and no guarding Auscultation: normal bowel sounds Skin General skin exam: no rashes or lesions noted, elasticity normal and turgor normal Neuro General: patient alert, patient awake, patient oriented x3, oriented, gait normal, tone normal and moves all extremities Cranial Nerves: CN's II-XI intact bilaterally and tongue midline Gait: normal gait Motor: muscle tone normal throughout Extrem General: normal to inspection and full ROM Psych Appearance: grossly normal Other: The patient appears to have capacity to make medical decisions Course Vital Signs Vital signs: Vital Signs Temperature 38.0 C H 02/27/23 10:20 Pulse 100 H 02/27/23 10:20 Respiratory Rate 20 02/27/23 10:20 Blood Pressure 123/72 02/27/23 10:20 Pulse Oximetry 99 02/27/23 10:20 Temperature 38.0 C H 02/27/23 10:20 Temperature Source Oral 02/27/23 10:20 Pulse 100 H 02/27/23 10:20 Respiratory Rate 20 02/27/23 10:20 Respiratory Effort Normal 02/27/23 10:23 Blood Pressure 123/72 02/27/23 10:20 Blood Pressure Position Sitting 02/27/23 10:20 Pulse Oximetry 99 02/27/23 10:20 Oxygen Delivery Method Room Air 02/27/23 10:20 Oxygen Flow Rate 0 02/27/23 10:20 Pain Level 7 02/27/23 10:20
[2023-02-27] MEDS: Clindamycin 300 MG CAP PO (11:01)
== END 2023-02-27 11:07 | disposition home or self-care (01) ==
PROVIDERS: Emergency Provider Emergency Medicine Emergency Medical Services
DX: K04.7 Periapical abscess without sinus (principal); K02.9 Dental caries, unspecified
CPT/HCPCS: 99283

== ENCOUNTER 2023-11-21 06:45 | Emergency (ER) | payer MEDICAID, SELFPAY ==
[2023-11-21] VITALS (20 sets, daily range): BP systolic 111–123; BP diastolic 64; PULSE 45–60; RESP 6–16; TEMP 35.8–36.4; O2SAT 92–99
--- NOTE | 2023-11-21 07:17 | W.ED.GENAD ---
Discharge Plan Disposition Patient Disposition: Home Discharge Details Clinical Impression: Dental abscess Primary Care Provider: Lissy Allen ED Provider: Eber Stanley Home Meds and New Rx's Prescriptions: New clindamycin HCl 300 mg capsule 300 mg PO Q6H 10 Days Qty: 40 0RF Continued albuterol sulfate 90 mcg/actuation Hfa Aerosol Inhaler 2 inh INHALATION Q4H PRN PRN ibuprofen [Ibuprofen IB] 200 mg tablet 600 mg PO Q6H PRN (Reason: pain) Qty: 60 0RF Rx Instructions: Take 2-3 tabs every 6 hours as needed for pain Discharge Instructions Instructions: Dental Pain Additional Instructions: You were seen in the emergency department for your dental pain. You are receiving antibiotics that you should take as directed. Please call this list of dentists to arrange for dental follow-up. Please return to the emergency department if you develop fevers cannot eat or drink as result of nausea or vomiting or if you have any other concerns. As we discussed you had some abnormal liver function tests for which hepatitis screening was sent. You will receive a call if these results are concerning. A referral has been placed for you to have a primary care provider. For your pain please take medications as follows: 1. Take acetaminophen (Tylenol), 1,000 mg (two 500 mg tabs) every 6 hours [2. Take ibuprofen (Advil), 400 mg every 6 hours.] Discharge Data Discharge Date/Time-TO BE ENTERED AT DEPARTURE: 11/21/23 11:08 HPI General Date/Time Provider Initiated Documentation: 11/21/23 07:09. HPI Narrative: MDM This is an afebrile and not tachycardic 36-year-old male on methadone with abdominal pain concerning for the possibility of appendicitis versus diverticulitis for which patient will undergo CT scan. Patient does have a history of IV drug use however he is having no chest pain or shortness of breath so my suspicion is low for endocarditis. I considered sepsis however the patient is not tachycardic nor hypotensive so I did not obtain blood cultures nor check a lactate. Will treat with oral clindamycin given penicillin allergy in the setting of the patient's right maxillary periapical abscess. No brawny edema submentally to suggest Roberto's angina. Uvula midline so doubt peritonsillar abscess. Good range of motion in neck so my suspicion is low for retropharyngeal abscess. No pain out of proportion to suggest necrotizing soft tissue infection. No rash to abdomen to suggest zoster. Not a vasculopath and not hypotensive so my suspicion is low for ruptured AAA. Not an alcoholic so my suspicion is low for withdrawal. 9AM CBC showing mild leukocytosis no anemia. No thrombocytopenia. Comprehensive metabolic panel showing no JOSE. Comprehensive metabolic panel showing no acute electrolyte abnormalities. Mild hyperglycemia but no anion gap normal bicarbonate?/not consistent with DKA. Markedly elevated ALT greater than AST. Liver function tests are not in the thousands and bilirubin is less than 20. Will add on a PT but patient has no hypoglycemia no hypoalbuminemia and no report of GI bleed. Will add on acute hepatitis profile. Radiology noted concern for PCF so will add on RUQ US. 9:35 AM Reassuring normal synthetic function with INR 1.0. Lipase not consistent with pancreatitis. I asked health coordinator Nely to have the patient established with a PCP in the setting of his elevated LFTs. Will also provide him with a list of local dentists. 10:24 AM Ultrasound showing no cholelithiasis however there was mild gallbladder wall edema. No CBD dilatation. Patient has a subcapsular hematoma. General surgery will assess the patient. I met with the patient. His pain had resolved. He had nontender abdomen on reassessment. 10:45 AM I spoke with Dr. Mae from the general surgery team. He did assess the patient and did not feel that the patient's presentation represented acute cholecystitis. Patient had resolved abdominal pain. Will discharge him with oral antibiotics for his dental infection. I advised him to return to the ED if he has worsening abdominal pain nausea vomiting or any fevers. He understood his return indications and was discharged with an empiric trial of expectant outpatient management. Chronic conditions affecting the care of the patient: Prior IV drug use History obtained from an outside historian: N/A External record review: [facility] [place] EMR Medications: Ketorolac acetaminophen ondansetron Social determinants of health affecting disposition: Primary IV drug use Management discussed with: General Surgery Treatment/interventions considered: N/A Response to therapies provided: Improved symptoms in the ED HPI This is a 36-year-old male arrived to the emergency room via private vehicle in the setting of a tooth infection for the past week. Patient reports that he has had subjective fevers and chills. He denies chest pain and shortness of breath. He has not seen a dentist in over 2 years. He denies dysuria frequency leg pain and any falls. He reports that he is last used IV drugs 2 to 3 weeks ago. He took his methadone this morning. He denies routine tobacco ethanol or illicits. He is having some generalized abdominal pain. He has never had ureterolithiasis in the past. He denies hematochezia and vomiting. He has been passing gas. He has not had any diarrhea nor any recent antibiotic use. Exam General: Well-appearing in no acute distress speaking in complete sentences. Mildly diaphoretic. Intermittently nodding off during history taking. Head: Normocephalic, atraumatic. Eye: Extraocular eye movements intact. No conjunctival injection. No scleral icterus. Ear, nose, mouth, throat: Diffuse dental caries. Handling secretions. Normal voice. Posterior oropharynx with no significant erythema. Uvula midline. No fluctuance palpable nor any gross abscess in right upper jaw. No buccal cellulitis. No brawny edema submentally. Neck: Trachea midline. Good range of motion in neck Cardiovascular: Well-perfused distal extremities. Respiratory: Nonlabored respiration. Clear lungs bilaterally Gastrointestinal: Nondistended abdomen.generalized abdominal tenderness. No rebound. No guarding. Musculoskeletal: No edema. Moving all 4 extremities spontaneously. Skin: Normal for age and race, grossly normal temperature and turgor. No acute rash. Neurologic: Alert and appropriate, no apparent acute deficits. Psychiatric: Mood and manner are appropriate. Grooming and personal hygiene are appropriate. Related Data Home Medications ?Medication ?Instructions ?Recorded ?Confirmed albuterol sulfate 90 mcg/actuation 2 inh inhalation Q4H PRN PRN 08/11/22 11/21/23 aerosol inhaler ibuprofen 200 mg tablet (Ibuprofen 600 mg (3 x 200 mg) PO Q6H PRN 02/27/23 11/21/23 IB) pain #60 tabs clindamycin HCl 300 mg capsule 300 mg PO Q6H 10 days #40 caps 11/21/23 Previous Rx's ?Medication ?Instructions ?Recorded ibuprofen 200 mg tablet (Ibuprofen 600 mg (3 x 200 mg) PO Q6H PRN 02/27/23 IB) pain #60 tabs clindamycin HCl 300 mg capsule 300 mg PO Q6H 10 days #40 caps 11/21/23 Allergies Allergy/AdvReac Type Severity Reaction Status Date / Time Penicillins Allergy Intermediate Hives Unverified 02/27/23 10:25 General Stated Complaint: DentalOral JEANNETTE: 3 Course Vital Signs Vital signs: Vital Signs Temperature 35.8 C L 11/21/23 06:48 Pulse 51 L 11/21/23 06:48 Respiratory Rate 16 11/21/23 06:48 Blood Pressure 111/64 11/21/23 06:48 Pulse Oximetry 98 11/21/23 06:48 Temperature 35.8 C L 11/21/23 06:48 Temperature Source Temporal Artery Scan 11/21/23 06:48 Pulse 51 L 11/21/23 06:48 Respiratory Rate 16 11/21/23 06:48 Respiratory Effort Normal, Non-Labored 11/21/23 06:51 Blood Pressure 111/64 11/21/23 06:48 Blood Pressure Position Sitting 11/21/23 06:48 Pulse Oximetry 98 11/21/23 06:48 Oxygen Delivery Method Room Air 11/21/23 06:48 Oxygen Flow Rate 0 11/21/23 06:48 Pain Level 11/21/23 06:48 Medical Decision Making Quality:SDOH Health Related Social Needs: No Data to Display PFSH All Active Problems (Updated 11/21/23 @ 10:53 by Jeremy Mae MD) Abnormal liver function tests (Acute) Dental abscess (Acute) Social History Smoking/Tobacco Use Status: Never Smoking risk assessment performed?: Yes Alcohol Intake: never Drug use: Never Substance use type: does not use Housing: apartment Do you feel safe at home: Yes Do you feel safe in your relationship?: Yes
--- NOTE | 2023-11-21 07:24 | DI.CT_ITS ---
Exam(s) CT ABDOMEN PELVIS W EXAM: CT ABDOMEN PELVIS W CLINICAL HISTORY: Abdominal pain. TECHNIQUE: Imaging Protocol: Axial computed tomography images with coronal and sagittal reformatted images were created and reviewed CONTRAST MATERIAL: Intravenous: Omnipaque-350 100cc Oral: None COMPARISON: CR,XR XR CHEST 1V IN DI DEPT from 08/12/[address] CHEST PE CTA from 08/12/[address] UPPER EXTREMITY RT CTA from 08/12/2022 FINDINGS: VISUALIZED LUNG BASES: No nodules nor pleural effusions evident. ABDOMEN: There is no ascites. LIVER: Area of hypodensity in liver adjacent to the gallbladder fossa probably represents fatty paren chymal change. No dilated intrahepatic ducts. GALLBLADDER/BILIARY: Gallbladder appears mildly distended and there is some gallbladder wall edema at the level the fundus. There are no obvious calcified gallstones. CBD is not dilated. PANCREAS: No evidence of pancreatic mass nor dilatation of the pancreatic duct. SPLEEN: Mild splenomegaly. No intrasplenic lesions. Splenic and portal veins are patent. ADRENALS: There are no significant adrenal masses. KIDNEYS:No cysts evident. No solid renal masses. No calculi nor hydronephrosis.. ABDOMINAL AORTA: Abdominal aorta is not enlarged. LYMPH NODES:There is no retroperitoneal nor paraaortic adenopathy. ABDOMINAL WALL: No evidence of significant anterior abdominal wall nor inguinal hernia. GI: There is no evidence of bowel obstruction, free air, nor abscess. Colon is collapsed difficult to assess. Cannot exclude colitis pattern. PELVIS: GI: No evidence of appendicitis.No evidence of sigmoid diverticulitis. LYMPH NODES: There is no intrapelvic nor inguinal adenopathy. REPRODUCTIVE: Prostate size normal. URINARY BLADDER: No calculi nor obvious masses evident OSSEOUS: There is fixation hardware in the left hip and left hemipelvis/left acetabulum. Also fixati on hardware L1-L3 with point here prior compression fracture of L2. The posterior cortex of L2 is re tropulsed 9 mm and indents the thecal sac at this level IMPRESSION: 1. Subtle fluid around or edema of the gallbladder fundus. No radiopaque gallstones evident. CBD no t dilated. 2. Hypodense area in the liver adjacent to the gallbladder fossa measuring approximately 2 x 1.5 cm. Should also be studied with ultrasound. 3. Collapsed bowel. 4. Osseous findings and hardware as above Discussed with ER physician RADIATION DOSE DELIVERED: 253.22mGy.cm Total DLP DATA REPOSITORY: All CT scans at this facility are submitted to the National Radiology Data Registry (NRDR) Dose Index Registry (DIR) with the [employer] ([employer]). RADIATION OPTIMIZATION: All CT scans at this facility use at least one of these dose optimization te chniques: automated exposure control; mA and/or kV adjustment per patient size (includes targeted exa ms where dose is matched to clinical indication); or iterative reconstruction.
--- NOTE | 2023-11-21 07:45 | RT.EKG_ITS ---
APPROVED REPORT Exam: Resting ECG Reason for Exam: bradycardic Patient Location: E HR:47 bpm ECG Measurements Heart Rate 47 AXIS [place] 163 P 70 QRSd 83 QRS 66 QT 499 T 81 QTc 440 Conclusion Sinus bradycardia...rate< 60 Narrow complex sinus bradycardia rate of 47. Normal axis. Intervals within normal limits. T wave i nversion in aVL. Compared to prior dated last year sinus bradycardia has replaced sinus tachycardia. T wave version in aVL is new. No acute injury pattern.
[2023-11-21 07:53] LABS: Abs Immature Grans 0.05 10^3/uL (0.0-0.06); Absolute Basophil Count 0.02 10^3/uL (0.0-0.2); Absolute Eosinophil Count 0.06 10^3/uL (0.0-0.7); Absolute Lymphocyte Count 0.94 10^3/uL (1.2-3.4); Absolute Monocyte Count 0.57 10^3/uL (0.1-0.8); Basophils % 0.2 %; Eosinophils % 0.5 %; HCT 47.1 % (40.0-50.0); HGB 14.8 g/dL (13.5-17.5); Immature Grans % 0.4 %; Lymphocytes % 8.4 %; MCH 28.8 pg (27.0-33.0); MCHC 31.4 % (32.0-36.0); MCV 92 fL (80-95); MPV 10.3 fL (8.0-11.0); Monocytes % 5.1 %; Neutrophils % 85.4 %; Platelet Count 264 10^3/uL (130-400); RBC 5.14 10^6/uL (4.36-5.78); RDW 14.6 % (11.8-14.1); RDW-SD 49.3 fL; WBC 11.15 10^3/uL (4.4-10.8)
[2023-11-21] MEDS: Ondansetron 4 MG/2 ML VIAL IVP (07:55)
[2023-11-21] MEDS: Ketorolac 15 MG/ML VIAL IVP (07:55)
[2023-11-21] MEDS: ACETAMINOPHEN 1,000 MG/100 ML BTL 400 MG IVPB (07:55)
[2023-11-21] MEDS: Normal Saline 500 ML IV (07:55)
[2023-11-21 07:58] LABS: Absolute Neutrophil Count 9.52 10^3/uL (1.2-6.7)
[2023-11-21] MEDS: Normal Saline - Diluent 50 ML VIAL IJ (08:01)
[2023-11-21] MEDS: Omnipaque 350 MG/ML 100 ML BTL 90 ML IJ (08:02)
[2023-11-21 08:13] LABS: ALT 262 U/L (16-63); AST 128 U/L (15-37); Albumin 3.8 g/dL (3.4-5.0); Alkaline Phosphatase 123 U/L (46-116); BUN 10 mg/dL (7-18); Bilirubin, Total 1.24 mg/dL (0.2-1.0); CREATININE 0.8 mg/dL (0.70-1.30); Calcium 9.5 mg/dL (8.5-10.1); Chloride 102 mmol/L (98-107); Estimated GFR 117.63 (mL/min/1.73m2); Glucose 112 mg/dL (74-106); Sodium 139 mmol/L (136-145); Total Protein 8.2 g/dL (6.4-8.2)
--- NOTE | 2023-11-21 08:45 | DI.US_ITS ---
Exam(s) US ABDOMEN LIMITED EXAM: US ABDOMEN LIMITED CLINICAL HISTORY: Pericholecystic fluid TECHNIQUE: Ultrasound abdomen performed using standard protocol. COMPARISON: CT scan earlier same day FINDINGS: LIVER: There is a hyperechoic subcapsular area just above the gallbladder fossa in the left hepatic l obe measuring approximately 3 x 1 x 2.5 cm, having the appearance of a probable hemangioma. GALLBLADDER/BILIARY: There are no gallstones. However, there does appear to be some gallbladder rose marie a corresponds what is seen on the CT scan today. The common hepatic duct isnot dilated, measuring 3-4mm at the level of douglas hepatis. PANCREAS: There is no evidence of pancreatic mass nor dilatation of the pancreatic duct. RIGHT KIDNEY:No evidence of solid mass, calculus, nor hydronephrosis. No cortical cysts evident. IMPRESSION: 1. No gallstones evident. However, there is mild gallbladder wall edema noted, this corresponding t o what is evident on CT scan. Patient was apparently not tender over the gallbladder during scanning today. CBD diameter is normal 2. 3 x 1 x 2.5 cm subcapsular hemangioma noted in the left hepatic lobe. This corresponds to findin g on CT scan earlier today. 3. No other right upper quadrant ultrasound findings. Findings of the study discussed with ER physician DATA REPOSITORY:
--- NOTE | 2023-11-21 08:56 | DI.VRAD_ITS ---
PROCEDURE INFORMATION: Exam: CT Abdomen And Pelvis With Contrast Exam date and time: 11/21/2023 8:00 AM Age: 36 years old Clinical indication: Abdominal pain; Generalized; Patient HX: Abdomen pain TECHNIQUE: Imaging protocol: Computed tomography of the abdomen and pelvis with contrast. Contrast material: OMNIPAQUE 350; Contrast volume: 90 ml; Contrast route: INTRAVENOUS (IV); COMPARISON: No relevant prior studies are available for comparison. FINDINGS: Limitations: Images degraded due to artifact from metallic hardware. Liver: Mild periportal edema, nonspecific. Gallbladder and biliary ducts: Distended gallbladder. Pericholecystic edema. Pancreas: No CT evidence for acute pancreatitis. Spleen: No splenomegaly. Adrenal glands: No mass. Kidneys and ureters: No hydronephrosis or evidence for pyelonephritis. Stomach and bowel: Gastric thickening. No intestinal obstruction is evident. Fluid in nondilated small bowel, nonspecific. Colonic thickening. Appendix: No evidence of appendicitis. Intraperitoneal space: Trace pelvic fluid. Vasculature: No abdominal aortic aneurysm. Lymph nodes: Nonspecific mesenteric and retroperitoneal lymph nodes. Urinary bladder: The urinary bladder appears mildly thickened but is incompletely distended. Reproductive: Prominent seminal vesicles. Bones/joints: Chronic compression deformity at L2 with retropulsion of the superior endplate. Pedicle screws and spinal stabilization rods from L1-L3. Endplate deformity at L5 appears chronic as well. Status post internal fixation of left pelvic and femoral fractures. Soft tissues: No pertinent acute abnormality seen. IMPRESSION: 1. Gastric thickening consistent with gastritis. 2. Colonic thickening consistent with colitis. 3. Pericholecystic fluid, may be related to adjacent inflammation. Cholecystitis cannot be excluded. This may be further evaluated with right upper quadrant ultrasound if clinically warranted. 4. Thickening of the urinary bladder likely secondary to incomplete distension. Underlying cystitis considered less likely but not excluded. Please correlate clinically. Dictated and Authenticated by: Mariposa Contreras MD. Ordering:ARNULFO Velázquez MD
[2023-11-21 09:26] LABS: Prothrombin Time 10.4 sec (9.1-11.1)
[2023-11-21 09:29] LABS: Lipase 12 U/L (16-77)
[2023-11-21 10:04] LABS: Acetaminophen 12 ug/mL (10-30)
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
[2023-11-21 19:45] LABS: Hepatitis A Antibody IgM Negative (Negative); Hepatitis B Core Antibody Negative (Negative); Hepatitis B surface Ag Negative (Negative); Hepatitis C Ab w Rflx HCV PCR Reactive (Negative)
[2023-11-23 13:11] LABS: HCV RNA Detection Quantitative 975000 IU/mL (Undetected); HCV RNA Qualitative Detected (Undetected)
== END 2023-11-21 11:08 | disposition home or self-care (01) ==
PROVIDERS: Emergency Provider Emergency Medicine; PCP Family Medicine
DX: K04.7 Periapical abscess without sinus; R79.89 Other specified abnormal findings of blood chemistry; R00.1 Bradycardia, unspecified
CPT/HCPCS: 36415; 80053; 83690; 86704; 86709; 86803; 87340; 87522; 93005; 96365; 96366; 96375; 99285; 74177; 76705; 80329; 85025; 85610; 93010; 99284; J0131; J1885; J2405; J3490

== ENCOUNTER 2023-11-24 05:49 | Emergency (ER) | payer MEDICAID, SELFPAY ==
[2023-11-24] VITALS (20 sets, daily range): BP systolic 102–121; BP diastolic 34–77; PULSE 49–84; RESP 9–18; TEMP 36.8; O2SAT 96–100
--- NOTE | 2023-11-24 05:45 | RT.EKG_ITS ---
APPROVED REPORT Exam: Resting ECG Reason for Exam: SOB Patient Location: E HR:67 bpm ECG Measurements Heart Rate 67 AXIS [place] 156 P 71 QRSd 83 QRS 68 QT 463 T 81 QTc 489 Conclusion Sinus arrhythmia...V-rate 51- 80, variation>10% I have reviewed and interpreted ECG and agree with software generated interpretation.
--- NOTE | 2023-11-24 05:45 | DI.US_ITS ---
Exam(s) US ABDOMEN LIMITED EXAM: US ABDOMEN LIMITED CLINICAL HISTORY: eval GB, RUQ pain, vomiting TECHNIQUE: Ultrasound abdomen performed using standard protocol. COMPARISON: CT CT ABDOMEN PELVIS W from 11/21/2023 FINDINGS: There is no ascites evident. LIVER: There is well-defined pericolic area in the liver adjacent to the gallbladder fossa which is e ither focal fatty change or a cavernous hemangioma, this corresponding to the finding described on e recent CT scan. No other focal liver findings. GALLBLADDER/BILIARY: There are no gallstones. No gallbladder wall edema nor pericholecystic fluid. The common hepatic duct isnot dilated, measuring 4-5mm at the level of douglas hepatis. PANCREAS: There is no evidence of pancreatic mass nor dilatation of the pancreatic duct. RIGHT KIDNEY:No evidence of solid mass, calculus, nor hydronephrosis. No cortical cysts evident. IMPRESSION: 1. No evidence of cholelithiasis nor dilatation of the biliary tree. The finding seen around the ga llbladder fundus on the recent CT scan was not able to be reproduced on today's ultrasound. In addit ion, the patient was apparently not tender over the gallbladder during scanning today. 2. Well-defined hyperechoic lesion in the liver adjacent to the gallbladder fossa corresponding to f inding on the recent CT scan. This has the appearance of either focal fatty change or a benign rupert nous hemangioma. 3. No other right upper quadrant ultrasound findings and there is no ascites evident DATA REPOSITORY:
[2023-11-24] MEDS: Lactated Ringers 1,000 ML 1000 ML IV (06:09)
[2023-11-24] MEDS: Ondansetron 4 MG/2 ML VIAL IVP (06:09)
[2023-11-24 06:16] LABS: Abs Immature Grans 0.04 10^3/uL (0.0-0.06); Absolute Basophil Count 0.02 10^3/uL (0.0-0.2); Absolute Eosinophil Count 0.05 10^3/uL (0.0-0.7); Absolute Lymphocyte Count 0.93 10^3/uL (1.2-3.4); Absolute Monocyte Count 0.47 10^3/uL (0.1-0.8); Absolute Neutrophil Count 4.85 10^3/uL (1.2-6.7); Basophils % 0.3 %; Eosinophils % 0.8 %; HCT 45.3 % (40.0-50.0); HGB 14.3 g/dL (13.5-17.5); Immature Grans % 0.6 %; Lymphocytes % 14.6 %; MCH 28.5 pg (27.0-33.0); MCHC 31.6 % (32.0-36.0); MCV 90 fL (80-95); MPV 9.9 fL (8.0-11.0); Monocytes % 7.4 %; Neutrophils % 76.3 %; Platelet Count 301 10^3/uL (130-400); RBC 5.02 10^6/uL (4.36-5.78); RDW 14.1 % (11.8-14.1); RDW-SD 46.7 fL; WBC 6.36 10^3/uL (4.4-10.8)
[2023-11-24 06:22] LABS: Lactate 0.79 mmol/L (0.9-1.7)
--- NOTE | 2023-11-24 06:28 | ED.GENADUL_ITS ---
Discharge Plan Discharge Details Chief Complaint: Abd Prob Clinical Impression: Abdominal pain, Hepatitis C virus infection Primary Care Provider: Lissy Allen ED Provider: Ryan Zayas [facility] General Date/Time Provider Initiated Documentation: 11/24/23 06:00 . HPI Narrative: This is a pleasant 36-year-old male with a past medical history of IV drug use, previous DVT, dental caries who presents today for recheck. Patient was seen and assessed on 11/21/2023. At that time he was diagnosed with a dental abscess and started on clindamycin. In addition to this though he had a very thorough exam and workup which showed evidence of transaminitis, a CT scan showing pericholecystic fluid and a subsequent right upper quadrant ultrasound. The ultrasound did show evidence of some mild gallbladder wall edema, but no CBD dilatation. There was a subcapsular angioma present. Surgery assessed the patient, and symptoms did not appear consistent with acute cholecystitis. Patient was discharged home with recommended close outpatient follow-up. Since discharge patient states that he has had continued abdominal pain which she states comes and goes in nature. It is stabbing and cramping in nature. It is around the entire mid aspect of his abdomen, and then spreads throughout. He denies fever or chills. He denies headache, chest pain or shortness of breath. He denies any numbness tingling or weakness. No modifying factors. No other complaints at this time. Related Data Allergies Allergy/AdvReac Type Severity Reaction Status Date / Time Penicillins Allergy Intermediate Hives Unverified 11/24/23 05:53 General Stated Complaint: Abd Prob JEANNETTE: 3 Review of Systems All systems reviewed & are unremarkable except as noted in HPI and below Exam Narrative Exam Narrative: 1.Const: Well-nourished, Well-developed, appearing stated age 2.Eyes: PERRL, no conjunctival injection, and symmetrical lids. 3.ENT: Atraumatic external nose and ears. Moist MM. Neck: Symmetric, trachea midline, No thyromegaly. 4.CVS: +S1/S2, No murmurs or gallops. Peripheral pulses 2+ and equal in all extremities. Brisk capillary refill in all extremities. 5.RESP: Unlabored respiratory effort. Clear to auscultation bilaterally. No wheezes rales or rhonchi 6.GI: Soft, Nondistended, No hepatosplenomegaly. No guarding or rebound. Mild achiness throughout. No focality. Negative Kirby sign. 7.MSK: Normocephalic/Atraumatic, Extremities w/o deformity or ttp No cyanosis or clubbing, Normal movement of all extremities 8.Skin: Warm, Dry. No rashes or lesions. 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 Sensation grossly intact, no focal neurologic deficits. 10.Psych: (AAO) x3. Appropriate mood and affect Course Vital Signs Vital signs: Vital Signs Pulse 63 11/24/23 05:50 Respiratory Rate 14 11/24/23 05:50 Temperature 36.8 C 11/24/23 05:55 Pulse 56 L 11/24/23 06:01 Pulse 54 L 11/24/23 06:01 Respiratory Rate 18 11/24/23 06:01 Respiratory Effort Normal 11/24/23 05:52 Blood Pressure 102/68 11/24/23 06:01 Blood Pressure Mean 72 11/24/23 06:01 Pulse Oximetry 98 11/24/23 05:55 Oxygen Delivery Method Room Air 11/24/23 05:55 Oxygen Flow Rate 0 11/24/23 05:55 Lab/Test Results Lab/Test Results: Laboratory Tests Range/Units 11/24/23 06:10 WBC (4.4-10.8) 10^3/uL 6.36 RBC (4.36-5.78) 10^6/uL 5.02 Hgb (13.5-17.5) g/dL 14.3 Hct (40.0-50.0) % 45.3 MCV (80-95) fL 90 MCH (27.0-33.0) pg 28.5 MCHC (32.0-36.0) % 31.6 L RDW (11.8-14.1) % 14.1 Plt Count (130-400) 10^3/uL 301 MPV (8.0-11.0) fL 9.9 Immature Gran % % 0.6 Neutrophils % % 76.3 Lymphocytes % % 14.6 Monocytes % % 7.4 Eosinophils % % 0.8 Basophils % % 0.3 Nucleated RBC % (0.0-0.3) % 0.0 Absolute Neutrophils (1.2-6.7) 10^3/uL 4.85 Absolute Lymphocytes (1.2-3.4) 10^3/uL 0.93 L Absolute Monocytes (0.1-0.8) 10^3/uL 0.47 Absolute Eosinophils (0.0-0.7) 10^3/uL 0.05 Absolute Basophils (0.0-0.2) 10^3/uL 0.02 VBG Lactate (0.9-1.7) mmol/L 0.79 L Procedures EJ/Peripheral Line Arm L: Time Out Performed: Yes Skin Cleansed in Sterile Fashion: Yes Size (gauge): 20 IV Secured and Dressing Applied: Yes Patient Tolerated Procedure: well and no complications Additional Comments: Candidate vein examined with linear array probe - confirmed collapsibility, lack of pulsatility, and proper anatomic location. Using aseptic technique, IV catheter inserted with flash of blood noted, flow of venous blood confirmed. Flushes easily and without pain. No hematoma or complications noted. IV secured. Patient tolerated well. Medical Decision Making This is a pleasant 36-year-old male with a past medical history of IV drug use, previous DVT, dental caries who presents today for recheck. Patient was seen and assessed on 11/21/2023. At that time he was diagnosed with a dental abscess and started on clindamycin. In addition to this though he had a very thorough exam and workup which showed evidence of transaminitis, a CT scan showing pericholecystic fluid and a subsequent right upper quadrant ultrasound. The ultrasound did show evidence of some mild gallbladder wall edema, but no CBD dilatation. There was a subcapsular angioma present. Surgery assessed the patient, and symptoms did not appear consistent with acute cholecystitis. Patient was discharged home with recommended close outpatient follow-up. Since discharge patient states that he has had continued abdominal pain which she states comes and goes in nature. It is stabbing and cramping in nature. It is around the entire mid aspect of his abdomen, and then spreads throughout. He denies fever or chills. He denies headache, chest pain or shortness of breath. He denies any numbness tingling or weakness. No modifying factors. No other complaints at this time. Exam demonstrates a stable male. He presents via EMS. Mild generalized achiness throughout. No focal guarding or rebound though. Limited bedside ultrasound demonstrates notably enlarged and elongated gallbladder, mild pericholecystic fluid, gallbladder wall edema appears present but mild. Patient is hesitant about getting a repeat CAT scan as he just had one a few days ago. I am concerned for worsening gallbladder pathology. We will place an order for formal ultrasound of the gallbladder, recheck the patient's labs compared to few days ago, monitor closely and reassess. Differential includes cholecystitis, cholangitis, choledocholithiasis. Pancreatitis is on the differential as well. Hepatitis panel was sent last time. Results demonstrate positivity for hepatitis C antibody as well as hepatitis C qualitative and quantitative values with 975,000 being the hepatitis C. This certainly would suggest active hepatitis C which may account for some of his other findings. Will rehydrate, treat the patient's pain, monitor closely and reassess. 7:22 AM Laboratory workup demonstrates a normal lactate, no white count bandemia or left shift, normal electrolytes, AST and ALT are 71 and 213 respectively, which is a slight improvement compared to prior. Lipase normal. Pending urinalysis. Pending ultrasound. Patient will be signed out to my colleague Dr. Godoy for follow-up on ultrasonography. Quality:SDOH Health Related Social Needs: No Data to Display PFSH All Active Problems (Updated 11/24/23 @ 07:25 by Ryan Zayas DO) Hepatitis C virus infection (Chronic) Abdominal pain (Acute) Abnormal liver function tests (Acute) Dental abscess (Acute) Social History Smoking/Tobacco Use Status: Never Smoking risk assessment performed?: Yes Alcohol Intake: never Drug use: Never Substance use type: does not use Housing: apartment Do you feel safe at home: Yes Do you feel safe in your relationship?: Yes POCUS Exam (ED) Limited Gallbladder Exam DATE OF EXAM: 11/24/23 TIME OF EXAM: 07:24 PROVIDER THAT PERFORMED THE STUDY: Ryan Zayas IS THIS A REPEAT EXAM DURING THIS ENCOUNTER: No REASON FOR VISIT: Abdominal pain VISUALIZED STRUCTURES: Gallbladder, Gallbladder wall and Pericholecystic fluid PERTINENT FINDINGS/IMPRESSION: Other, (Slight thickening of the gallbladder wall, enlargement of the gallbladder itself.) Slight thickening of the gallbladder wall, enlargement of the gallbladder itself. Exam complete
[2023-11-24 06:29] LABS: PTT Activated 31.9 sec (23.6-32.8); Prothrombin Time 10.2 sec (9.1-11.1)
[2023-11-24 06:32] LABS: ALT 213 U/L (16-63); AST 71 U/L (15-37); Albumin 3.7 g/dL (3.4-5.0); Alkaline Phosphatase 109 U/L (46-116); Anion Gap 6.7 mmol/L (3-11); BUN 10 mg/dL (7-18); Bilirubin, Direct 0.2 mg/dL (0.0-0.2); Bilirubin, Total 0.53 mg/dL (0.2-1.0); CO2 31.3 mmol/L (21.0-32.0); CREATININE 0.7 mg/dL (0.70-1.30); Calcium 9.4 mg/dL (8.5-10.1); Chloride 103 mmol/L (98-107); Estimated GFR 122.47 (mL/min/1.73m2); Glucose 95 mg/dL (74-106); Lipase 11 U/L (16-77); Potassium 3.7 mmol/L (3.5-5.1); Sodium 141 mmol/L (136-145); Total Protein 8.1 g/dL (6.4-8.2)
[2023-11-24] MEDS: MORPHine 4 MG/ML SYR IVP (06:41)
[2023-11-24] MEDS: Ketorolac 15 MG/ML VIAL IVP (06:41)
[2023-11-24 07:14] LABS: Bilirubin Negative (Negative); Blood Negative (Negative); Clarity Clear (Clear); Glucose Negative (Negative); Ketones 40 mg/dL (Negative); Leukocyte Esterase Negative (Negative); Nitrite Negative (Negative)
--- NOTE | 2023-11-24 08:22 | W.EDPROG ---
Date of service: 11/24/23 Time of Service: 08:22 Medical Decision Making Patient signed out to me pending ultrasound and also GI consult for his hepatitis C being positive. Patient returned from ultrasound and is requesting discharge. I advised that I do not have the results of his ultrasound or gastroenterology consult done yet, he has medical decision-making capacity is clinically sober. He understands the risk of leaving without the results of the ultrasound and GI consult including missing cholecystitis and becoming severely ill to the point where he may get worse and potentially or be permanently disabled. He is willing to accept these risks and is leaving AGAINST MEDICAL ADVICE. He understands he can return anytime if he changes his mind and I placed on the follow-up list to try and get him set up with a PCP or GI. he left prior to me printing d/c paperwork. Quality:SDOH Health Related Social Needs: No Data to Display Sign Out Sign Out Data: Sign Out Comment: Abdominal pain, no hepatitis C infection. Transaminases and bilirubin numbers are slightly improving, however gallbladder is concerning on ultrasound. Pending formal ultrasonography. Will need initiation of hepatitis treatment. Last updated by Ryan Zayas DO at 11/24/23 07:30 Discharge Plan Disposition Patient Disposition: Against Medical Advice Condition: Stable Discharge Details Chief Complaint: Abd Prob Clinical Impression: Abdominal pain, Hepatitis C virus infection Primary Care Provider: Lissy Allen ED Provider: Lui Godoy
== END 2023-11-24 08:25 | disposition left against medical advice (07) ==
PROVIDERS: Student in an Organized Health Care Education/Training Program; Emergency Provider Emergency Medicine; PCP Family Medicine
DX: B19.20 Unspecified viral hepatitis C without hepatic coma (principal); R10.9 Unspecified abdominal pain; R74.01 Elevation of levels of liver transaminase levels; Z53.29 Procedure and treatment not carried out because of patient's decision for other reasons
CPT/HCPCS: 00123; 36415; 76705; 80053; 82962; 83690; 93005; 96361; 96374; 96375; 99285; 81003; 82248; 83605; 85025; 85610; 85730; 93010; 99284; J1885; J2270; J2405

== ENCOUNTER 2023-11-28 18:48 | Outpatient (REF) | payer MEDICAID, SELFPAY ==
[2023-11-28 22:31] LABS: HCT 46.1 % (40.0-50.0); HGB 14.5 g/dL (13.5-17.5); MCH 28.4 pg (27.0-33.0); MCHC 31.5 % (32.0-36.0); MCV 90 fL (80-95); MPV 10.8 fL (8.0-11.0); Platelet Count 399 10^3/uL (130-400); RBC 5.11 10^6/uL (4.36-5.78); RDW 14.1 % (11.8-14.1); RDW-SD 46.9 fL
[2023-11-28 22:44] LABS: ALT 135 U/L (16-63); AST 41 U/L (15-37); Albumin 4.1 g/dL (3.4-5.0); Alkaline Phosphatase 97 U/L (46-116); Anion Gap 8.4 mmol/L (3-11); BUN 12 mg/dL (7-18); Bilirubin, Total 0.37 mg/dL (0.2-1.0); CO2 28.6 mmol/L (21.0-32.0); CREATININE 0.8 mg/dL (0.70-1.30); Calcium 9.3 mg/dL (8.5-10.1); Chloride 101 mmol/L (98-107); Estimated GFR 117.63 (mL/min/1.73m2); Glucose 94 mg/dL (74-106); Potassium 4.3 mmol/L (3.5-5.1); Sodium 138 mmol/L (136-145); Total Protein 8.3 g/dL (6.4-8.2)
[2023-11-29 18:15] LABS: Hepatitis B Surface Ag Negative (Negative)
[2023-11-29 18:45] LABS: HIV-1/2 Ag & Ab Screen Negative (Negative)
[2023-11-29 18:52] LABS: Hep A Total Ab w Rflx IgM Negative (Negative); Hep B Core Antibody Negative (Negative); Hepatitis C Ab w Rflx HCV PCR Reactive (Negative)
[2023-11-30 11:50] LABS: HCV RNA Detection Quantitative 1280000 IU/mL (Undetected); HCV RNA Qualitative Detected (Undetected)
[2023-12-02 11:04] LABS: ALT 123 U/L (7-55); ActiTest Grade A2-A3; ActiTest Interpretation significant activity; ActiTest Score 0.61; Alpha-2-Macroglobulin 180 mg/dL (100 - 280); Apoliprotein A1 135 mg/dL (>=120); Bilirubin, Total 0.4 mg/dL (0.0 - 1.2); FibroTest Interpretation no fibrosis; FibroTest Stage F0; GGT 100 U/L (8 - 61); Haptoglobin 146 mg/dL (30 - 200)
[2023-12-02 18:59] LABS: HCV Genotype 3 (Undetected)
== END 2023-11-28 18:49 | disposition home or self-care (01) ==
LOC: NCHCN 18:48
PROVIDERS: PCP Family Medicine; Visit Provider Nurse Practitioner Family
DX: B17.10 Acute hepatitis C without hepatic coma (principal)
CPT/HCPCS: 80053; 81596; 85027; 86704; 86709; 86803; 87340; 87389; 87522; 87521